=== PATIENT | female | born 1965 | race Two or more races ===

== ENCOUNTER 2018-06-04 12:36 | Emergency (ER) | payer MEDICAID ==
[~2018-06-04] VITALS: Ht 167.6 cm; Wt 74.8 kg
[2018-06-04 12:49] VITALS: Ht 167.6 cm; Wt 74.8 kg
[2018-06-04 15:55] VITALS: BP 142/80
== END 2018-06-04 15:55 | disposition home or self-care (01) ==
LOC: ED 12:36
DX: S63.501A Unspecified sprain of right wrist, initial encounter (principal); S80.02XA Contusion of left knee, initial encounter; W19.XXXA Unspecified fall, initial encounter; Y93.89 Activity, other specified; Y92.89 Other specified places as the place of occurrence of the external cause; Y99.8 Other external cause status

== ENCOUNTER 2019-06-24 14:58 | Emergency (ER) | payer MEDICAID ==
[~2019-06-24] VITALS: Ht 162.6 cm; Wt 69.9 kg
[2019-06-24 15:03] VITALS: Ht 162.6 cm; Wt 69.9 kg
[2019-06-24 16:54] VITALS: BP 126/70
== END 2019-06-24 16:54 | disposition home or self-care (01) ==
LOC: ED 14:58
DX: B34.9 Viral infection, unspecified (principal)